=== PATIENT | female | born 1950 | race Caucasian/White ===

== ENCOUNTER → 2018-05-29 | Outpatient (REF) | payer OTHER, MEDICARE ==
[2018-05-29 22:11] LABS: APPEARANCE, URINE HAZY (CLEAR); BACTERIA, URINE AUTO 3+ (NEGATIVE); BILIRUBIN, URINE AUTO NEGATIVE (NEGATIVE); BLOOD, URINE BLOOD 1+ (NEGATIVE); COLOR, URINE YELLOW (YELLOW); GLUCOSE, URINE (UA) AUTO NEGATIVE (NEGATIVE); KETONE, URINE AUTO NEGATIVE (NEGATIVE); LEUKOCYTE ESTERASE, URINE AUTO 2+ (NEGATIVE); MUCUS, URINE SMALL (NEGATIVE); NITRITE, URINE AUTO NEGATIVE (NEGATIVE); PROTEIN, URINE AUTO 1+ mg/dL (NEGATIVE); RBC, URINE AUTO 7 /HPF (0-3); SPECIFIC GRAVITY URINE AUTO 1.016 (1.002-1.035); SQUAMOUS EPITHELIAL CELL UR AU 0 /HPF (0-6); UROBILINOGEN, URINE AUTO 0.2 mg/dL (0.0-2.0); WBC, URINE AUTO TNTC /HPF (0-3)
== END ==
LOC: M LAB REF 21:48
DX: N39.0 Urinary tract infection, site not specified (principal)

== ENCOUNTER → 2019-04-26 | Outpatient (CLI) | payer MEDICARE, OTHER ==
[~2019-04-26] MED LIST: BENI40TA28 PO; CELE1CAP4 PO; CIPR-249 PO; CIPR500T3 PO; DICL75TA PO; FENO145T13 PO; FERR32TA PO; FLAG500T PO; GLUC500T53 PO; HYDR-3715 PO; KLOR10TA76 PO; LEVA1TAB2 PO; LOPR1TAB6 PO; MAGN400C2 PO; SENN18TA PO; TIZA4CAP PO; TYLE500T78 PO
--- NOTE | 2019-04-26 14:36 | REP ---
REASON: Pain, status post rotator cuff repair. COMPARISON: No priors. FINDINGS: Three views of the shoulder were performed. The acromioclavicular and glenohumeral relationships are within normal limits. There is no acute fracture or destructive osseous lesions. There is an anchor device in the humeral head from previous rotator cuff repair. Electronically Signed by Weston Deleon DO 04/26/2019 05:12 P
== END ==
LOC: M RAD 13:33
PROVIDERS: ATTEND Physician Assistant
DX: M25.511 Pain in right shoulder (principal)

== ENCOUNTER → 2021-03-10 | Outpatient (REF) | payer MEDICARE, OTHER ==
[~2021-03-10] MED LIST changes: -FENO145T13 PO; +FENO145T7 PO
== END ==
LOC: M LAB REF 19:47
PROVIDERS: ATTEND Physician Assistant
DX: N39.0 Urinary tract infection, site not specified (principal)

== ENCOUNTER → 2021-03-24 | Outpatient (REF) | payer MEDICARE, OTHER | LOC: M LAB REF 19:58 | PROVIDERS: ATTEND Physician Assistant | DX: N39.0 Urinary tract infection, site not specified (principal) ==

== ENCOUNTER → 2023-05-27 | Outpatient (REF) | payer MEDICARE, OTHER ==
[~2023-05-27] MED LIST changes: -BENI40TA28 PO; -KLOR10TA76 PO; +OLME-2 PO; +POTA-136 PO; +SENN-111 PO; -SENN18TA PO
== END ==
LOC: M LAB REF 16:05
PROVIDERS: ATTEND Nurse Practitioner Family
DX: R30.0 Dysuria (principal)

== ENCOUNTER 2024-02-12 20:38 | Emergency (ER) | payer MEDICARE, OTHER ==
[~2024-02-12] VITALS: Ht 162.6 cm; Wt 69.9 kg
[2024-02-12] MEDS ORDERED: PLAQ200T4 PO (20:50)
[2024-02-12] MEDS ORDERED: AMLO1TAB25 PO (20:52)
[2024-02-12] MEDS ORDERED: OLME1TAB92 PO (20:52)
[2024-02-12] MEDS ORDERED: IBUP-1022 PO (23:44)
[2024-02-12 23:52] VITALS: BP 180/90; TEMP 97; O2SAT 97
== END 2024-02-12 23:55 | disposition home or self-care (01) ==
LOC: M ED 20:38
DX: S63.283A Dislocation of proximal interphalangeal joint of left middle finger, initial encounter (principal); S63.285A Dislocation of proximal interphalangeal joint of left ring finger, initial encounter; W01.0XXA Fall on same level from slipping, tripping and stumbling without subsequent striking against object, initial encounter; E78.5 Hyperlipidemia, unspecified; I10 Essential (primary) hypertension; F10.10 Alcohol abuse, uncomplicated; Y92.481 Parking lot as the place of occurrence of the external cause; Y93.89 Activity, other specified; Y99.9 Unspecified external cause status; Z79.899 Other long term (current) drug therapy; Z79.1 Long term (current) use of non-steroidal anti-inflammatories (NSAID); Z79.811 Long term (current) use of aromatase inhibitors